=== PATIENT | female | born 1985 | race Caucasian/White ===

== ENCOUNTER 2017-07-28 08:28 | Day surgery (SDC) | payer OTHER ==
[~2017-07-28] VITALS: Ht 170.2 cm; Wt 69.3 kg
[~2017-07-28 08:28] MED LIST: ACET-1600 PO; BUPIVACAINE/PF 0.25% ONE; BUPIVACAINE/PF 0.5% ONE; EPINEPHRINE 1 MG/ML, 1ML ONE; IBUP-1222 PO; INTERCEED 3 X 4 INCH DRESSING ONE; NITR100C PO; OXYC-302 PO
[2017-07-28 09:07] VITALS: BP 137/97
[2017-07-28 09:23] LABS: HCG UR LOT HCG7030192
[2017-07-28] MEDS ORDERED: LIDOCAINE 1%, 2ML ONE (09:26)
[2017-07-28 09:31] LABS: HCG UR OBC PASS
[2017-07-28] MEDS ORDERED: PROPOFOL 10 MG/ML, 20ML ONE (09:50)
[2017-07-28] MEDS ORDERED: SUCCINYLCHOLINE 20 MG/ML, 10ML ONE (09:54)
[2017-07-28] MEDS ORDERED: ROCURONIUM 10MG/ML,5ML ONE (09:54)
[2017-07-28] MEDS ORDERED: MIDAZOLAM 1 MG/ML, 2ML ONE (09:55)
[2017-07-28] MEDS ORDERED: FENTANYL PF 100 MCG/2ML ONE ×3 (09:57→11:56)
[2017-07-28] MEDS ORDERED: LABETALOL 5MG/ML, 20ML IV PRN (10:00)
[2017-07-28] MEDS ORDERED: METOPROLOL 1 MG/ML, 5ML IV PRN (10:00)
[2017-07-28] MEDS ORDERED: MIDAZOLAM 1 MG/ML, 2ML IV PRN (10:00)
[2017-07-28] MEDS ORDERED: MEPERIDINE/PF 25MG/0.5ML IVPush PRN (10:00)
[2017-07-28] MEDS ORDERED: OXYcodone 5 MG/5 ML ORAL.SOL UDC PO PRN (10:00)
[2017-07-28] MEDS ORDERED: hydrALAzine 20 MG/ML, 1ML IV PRN (10:00)
[2017-07-28] MEDS ORDERED: ALBUTEROL SULFATE 2.5 MG/3 ML NPPB PRN (10:00)
[2017-07-28] MEDS ORDERED: EPHEDRINE 50 MG/ML, 1ML IVPush PRN (10:00)
[2017-07-28] MEDS ORDERED: ACETAMINOPHEN 325 MG TABLET PO PRN (10:00)
[2017-07-28] MEDS ORDERED: ONDANSETRON 2MG/ML, 2ML IVPush PRN (10:00)
[2017-07-28] MEDS ORDERED: METOCLOPRAMIDE 5 MG/ML, 2ML IV PRN (10:00)
[2017-07-28] MEDS ORDERED: PROMETHAZINE 25 MG/ML, 1ML IV PRN (10:00)
[2017-07-28] MEDS ORDERED: HYDROcodone/APAP 7.5-325MG/15ML UDC PO PRN (10:00)
[2017-07-28] MEDS ORDERED: KETOROLAC 30 MG/1 ML IV PRN (10:00)
[2017-07-28] MEDS ORDERED: ALBUTEROL SULFATE 200 PUFFS/8.5 GR INH ONE (10:45)
[2017-07-28] MEDS ORDERED: DEXAMETHASONE 4 MG/ML, 1ML ONE ×2 (10:56)
[2017-07-28] MEDS ORDERED: ONDANSETRON 2MG/ML, 2ML ONE (11:40)
[2017-07-28] MEDS: FENTANYL PF 100 MCG/2ML IV PRN ×2 (12:00→12:10)
[2017-07-28] MEDS ORDERED: HYDROmorphone 1 MG/ML, 1ML ONE ×2 (12:04→12:34)
[2017-07-28] MEDS: HYDROmorphone 1 MG/ML, 1ML IV PRN ×3 (12:05→12:35)
[2017-07-28] MEDS ORDERED: ACETAMINOPHEN 650 MG/20.3 ML UDC ONE (12:19)
[2017-07-28] MEDS ORDERED: OXYcodone 5 MG/5 ML ORAL.SOL UDC ONE (12:19)
== END 2017-07-28 14:15 ==
LOC: OUT 08:28
PROVIDERS: ATTEND Obstetrics & Gynecology
DX: N94.10 Unspecified dyspareunia (principal); N73.6 Female pelvic peritoneal adhesions (postinfective); K66.8 Other specified disorders of peritoneum
CPT/HCPCS: 49329; 58660; 81025; J0330; J1100; J1170; J2250; J2405; J2704; J3010; J0171; J3490